=== PATIENT | female | born 1970 | race Caucasian/White ===

== ENCOUNTER 2017-04-09 09:47 | Emergency (ER) | payer BC ==
[~2017-04-09] VITALS: Ht 167.6 cm; Wt 65.0 kg
[~2017-04-09 09:47] MED LIST: BACTRIM DS1 TAB PO; NO MEDS
[2017-04-09] MEDS ORDERED: TRAMADOL HYDROC50 MG PO (10:11)
[2017-04-09] MEDS ORDERED: MOTRIN800 MG PO (10:11)
[2017-04-09] MEDS ORDERED: FLEXERIL PO (10:11)
[2017-04-09 10:23] VITALS: BP 139/90
== END 2017-04-09 10:23 | disposition home or self-care (01) | DRG 552 ==
LOC: ED 09:47
DX: M54.32 Sciatica, left side (principal); F17.210 Nicotine dependence, cigarettes, uncomplicated

== ENCOUNTER 2017-07-21 09:06 | Emergency (ER) | payer BC ==
[~2017-07-21] VITALS: Ht 167.6 cm; Wt 70.0 kg
[~2017-07-21 09:06] MED LIST changes: +FLEXERIL PO; +MOTRIN800 MG PO; +TRAMADOL HYDROC50 MG PO
[2017-07-21] MEDS ORDERED: IBUPROFEN600 MG PO (09:27)
[2017-07-21] MEDS ORDERED: ZITHROMAX250 MG PO (09:27)
[2017-07-21] MEDS ORDERED: PREDNISONE50 MG PO (09:27)
[2017-07-21] MEDS ORDERED: TESSALON PER100 MG PO (09:27)
[2017-07-21 09:54] LABS: INFLUENZA A NONE DETECTED (NONE DETECT); INFLUENZA B NONE DETECTED (NONE DETECT)
[2017-07-21 10:10] VITALS: BP 112/66
== END 2017-07-21 10:10 | disposition home or self-care (01) | DRG 192 ==
LOC: ED 09:06
PROVIDERS: Emergency Medicine
DX: J44.1 Chronic obstructive pulmonary disease with (acute) exacerbation (principal); F17.210 Nicotine dependence, cigarettes, uncomplicated; R09.81 Nasal congestion; R05 Cough; R09.89 Other specified symptoms and signs involving the circulatory and respiratory systems; R50.9 Fever, unspecified

== ENCOUNTER 2020-02-16 13:59 | Emergency (ER) | payer SELFPAY ==
[~2020-02-16] VITALS: Ht 167.6 cm; Wt 79.5 kg
[~2020-02-16 13:59] MED LIST changes: +IBUPROFEN600 MG PO; +PREDNISONE50 MG PO; +TESSALON PER100 MG PO; +ZITHROMAX250 MG PO
[2020-02-16] MEDS ORDERED: MOTRIN400 MG PO ×2 (14:09)
[2020-02-16] MEDS ORDERED: CEPHALEXIN500 M1 PO ×4 (14:09→15:05)
[2020-02-16] MEDS ORDERED: BACTRIM DS1 TAB PO ×4 (14:09→15:05)
[2020-02-16 15:09] VITALS: BP 135/80
== END 2020-02-16 15:05 | disposition home or self-care (01) | DRG 603 ==
LOC: ED 13:59
DX: L03.114 Cellulitis of left upper limb (principal); F17.200 Nicotine dependence, unspecified, uncomplicated

== ENCOUNTER 2020-02-19 15:44 | Emergency (ER) | payer SELFPAY ==
[~2020-02-19] VITALS: Ht 167.6 cm; Wt 72.0 kg
[~2020-02-19 15:44] MED LIST changes: +CEPHALEXIN500 M1 PO; +MOTRIN400 MG PO
[2020-02-19 16:31] LABS: HEMATOCRIT 38.5 % (37.0-47.0); HEMOGLOBIN 12.1 g/dl (12.0-16.0); IMMATURE GRANULOCYTES 0.7 % (0.0-5.0); MEAN CELL VOLUME 84.6 fL CALC (80.0-100.0); MEAN CORPUSCULAR HGB 26.6 pG CALC (26.0-32.0); MEAN CORPUSCULAR HGB CONC 31.4 g/dL CAL (32.0-36.0); NEUT# 9.18 thou/uL (2.00-7.15); RED BLOOD COUNT 4.55 mill/uL (4.20-5.60); RED CELL DISTRI WIDTH 13.2 % (11.5-15.5)
[2020-02-19 16:54] LABS: ALBUMIN 3.5 g/dL (3.2-5.0); ALKALINE PHOSPHATASE 101 u/l (38-126); ANION GAP 9 (6-22 (CALC)); BILIRUBIN, TOTAL 0.4 mg/dL (0.0-1.4); BUN 15 mg/dL (7-17); BUN/CREATININE RATIO 19 (12-20 (CALC)); CARBON DIOXIDE 30 mmol/l (22-30); CHLORIDE 100 mmol/l (95-108); CREATININE 0.8 mg/dL (0.5-1.0); GFR > 60 ML/MIN (>=60 (CALC)); GFR FOR AFR.AMER. > 60 ML/MIN (>=60 (CALC)); POTASSIUM 3.9 mmol/l (3.5-5.1); SGOT/AST 16 u/l (14-36); SODIUM 136 mmol/l (137-146); TOTAL PROTEIN 6.9 g/dL (6.3-8.2)
[2020-02-19] MEDS ORDERED: CLEOCIN300 MG PO (17:33)
[2020-02-19 17:47] VITALS: BP 112/70
== END 2020-02-19 17:59 | disposition home or self-care (01) | DRG 603 ==
LOC: ED 15:44
PROC: 0H9CXZZ Drainage of Left Upper Arm Skin, External Approach (ICD-10-PCS; principal; 2020-02-19)
DX: L02.414 Cutaneous abscess of left upper limb (principal); L03.114 Cellulitis of left upper limb; F17.200 Nicotine dependence, unspecified, uncomplicated

== ENCOUNTER 2020-02-20 13:47 | Emergency (ER) | payer SELFPAY ==
[~2020-02-20] VITALS: Ht 167.6 cm; Wt 72.0 kg
[~2020-02-20 13:47] MED LIST changes: +CLEOCIN300 MG PO
[2020-02-20 14:22] VITALS: BP 138/65
== END 2020-02-20 14:28 | disposition home or self-care (01) | DRG 951 ==
LOC: ED 13:47
DX: Z48.01 Encounter for change or removal of surgical wound dressing (principal)

== ENCOUNTER 2020-02-23 10:36 | Emergency (ER) | payer SELFPAY ==
[~2020-02-23] VITALS: Ht 167.6 cm; Wt 79.5 kg
[2020-02-23 11:40] VITALS: BP 119/76
== END 2020-02-23 11:40 | disposition home or self-care (01) | DRG 951 ==
LOC: ED 10:36
DX: Z48.01 Encounter for change or removal of surgical wound dressing (principal); F17.210 Nicotine dependence, cigarettes, uncomplicated

== ENCOUNTER 2020-02-25 08:36 | Emergency (ER) | payer SELFPAY ==
[~2020-02-25] VITALS: Ht 167.6 cm; Wt 75.0 kg
[2020-02-25 09:37] VITALS: BP 125/78
== END 2020-02-25 09:33 | disposition home or self-care (01) | DRG 951 ==
LOC: ED 08:36
DX: Z48.01 Encounter for change or removal of surgical wound dressing (principal); F17.200 Nicotine dependence, unspecified, uncomplicated